=== PATIENT | male | born 1950 | race African-American/Black ===

== ENCOUNTER 2023-05-10 13:37 | Emergency (ER) | payer OTHER, SELFPAY ==
--- NOTE | ~2023-05-10 | XR_ITS ---
EXAM: XR knee LT 3V DATE: 05/10/2023 16:17 HISTORY: NON SPECIFIC LEFT KNEE PAIN X 3 WEEKS NO FALL NO TRAUMA . COMPARISON: None available. FINDINGS: Normal mineralization. No fracture or dislocation. No lytic or blastic lesion. Mild tricom partmental osteoarthritis. Trace knee joint effusion. Quadriceps and patellar enthesopathy. No erosio n or periosteal change. Vascular calcifications. IMPRESSION: No acute osseous finding in the left knee. Reviewed, dictated and finalized at location K. SPECIALIST
[2023-05-10 13:43] VITALS: BP 154/101; PULSE 109; RESP 20; TEMP 36.3; O2SAT 98
--- NOTE | 2023-05-10 17:19 | ED.GENADULT ---
HPI - General Adult General Chief complaint: Extremity Injury, Lower Stated complaint: Left knee Time Seen by Provider: 05/10/23 16:06 History of Present Illness HPI narrative: 72-year-old male presenting to the emergency department for evaluation of left knee pain that has been persistent for approximately last 3 weeks. Patient states he has had previous follow-up with orthopedics for this but he was not able to secure follow-up with orthopedics recently. Patient denies any falls or injuries recently but states that when he ambulates he does have increased pain in the left knee. Related Data Allergies Allergy/AdvReac Type Severity Reaction Status Date / Time lisinopril Allergy Swelling Verified 05/10/23 13:39 of Lip/Tongue/Throat phentermine Allergy Swelling Verified 05/10/23 13:39 of Lip/Tongue/Throat Review of Systems Review of Systems: All systems reviewed & are unremarkable except as noted in HPI and below Exam Narrative: APPEARANCE: Well appearing, no pain, no distress, well-nourished. HEAD: normocephalic, atraumatic. EYES: PERRLA/EOMI, conjunctivae clear. NOSE: Normal no drainage EARS:TMS clear with good light reflex. THROAT: Pharynx clear, no exudate. NECK: Supple. No adenopathy, no masses. RESPIRATORY: Airway patent, respirations nonlabored. Clear to auscultation bilaterally, no rales, rhonchi, wheezing. CARDIOVASCULAR: Regular rate and rhythm without murmurs rubs or gallops. ABDOMINAL: Soft, nontender, nondistended, normal bowel sounds MUSCULOSKELETAL: Left knee tenderness to palpation, no deformity, no erythema and no significant effusion NEURO: Alert. Cranial nerves II through XII intact. Good gait. Good coordination SKIN: Warm, dry. Normal Color PSYCHIATRIC: Normal affect/mood. Course Course Emergency Course: Patient was encouraged to have close follow-up with his orthopedic physician as outpatient. Vital Signs Vital signs: Vital Signs Temperature 97.3 F L 05/10/23 13:43 Pulse Rate 109 H 05/10/23 13:43 Respiratory Rate 20 05/10/23 13:43 Blood Pressure 154/101 H 05/10/23 13:43 Pulse Oximetry 98 05/10/23 13:43 Temperature 97.3 F L 05/10/23 13:43 Pulse Rate 110 H 05/10/23 17:38 Respiratory Rate 20 05/10/23 17:38 Blood Pressure 127/84 05/10/23 17:38 Pulse Oximetry 97 05/10/23 17:38 Medical Decision Making MDM Narrative Medical decision making narrative: 72-year-old male presenting to the emergency department for evaluation of left knee pain. X-ray did show osteoarthritis with no acute findings. Patient was updated on the results of the workup and patient will be provided some steroids for symptom control. Patient was advised to have close follow-up with Orthopedics and patient was provided follow-up with our orthopedic surgeon on-call. Differential Diagnosis Differential Diagnosis: Knee fracture, knee contusion, septic arthritis, osteoarthritis Vital Signs Vital Signs: Vital Signs Temperature 97.3 F L 05/10/23 13:43 Pulse Rate 109 H 05/10/23 13:43 Respiratory Rate 20 05/10/23 13:43 Blood Pressure 154/101 H 05/10/23 13:43 Pulse Oximetry 98 05/10/23 13:43 Temperature 97.3 F L 05/10/23 13:43 Pulse Rate 110 H 05/10/23 17:38 Respiratory Rate 20 05/10/23 17:38 Blood Pressure 127/84 05/10/23 17:38 Pulse Oximetry 97 05/10/23 17:38 Imaging Data Radiologist's impression: Impressions Knee X-Ray 05/10/23 16:18 IMPRESSION: No acute osseous finding in the left knee. Discharge Plan Discharge Clinical Impression: Osteoarthritis, Knee joint pain Patient Disposition: Home, Self-Care Condition: Stable Instructions: Antibiotic Form, Osteoarthritis (DC), Knee Pain (ED) Additional Instructions: Home medications as directed. medrol Dosepak as directed until completed. Knee brace for comfort. have close follow-up with your orthopedic physician. If you are unable to see your ort
[2023-05-10 17:38] VITALS: BP 127/84; PULSE 110; RESP 20; O2SAT 97
== END 2023-05-10 17:40 | disposition home or self-care (01) ==
PROVIDERS: Emergency Provider Emergency Medicine; PCP Internal Medicine
DX: M17.12 Unilateral primary osteoarthritis, left knee (principal)
CPT/HCPCS: 73562; 99283